=== PATIENT | male | born 2005 | race Two or more races ===

== ENCOUNTER 2024-01-04 11:19 | Emergency (ER) | payer SELFPAY ==
[2024-01-04] MEDS: Lidocaine 2% Viscous Solution 15 ML UD PO ONE (12:09)
[2024-01-04] MEDS: Benzocaine 20% Topical Spray UD MUCMEM ONE (12:09)
== END 2024-01-04 12:13 | disposition home or self-care (01) ==
LOC: MW.ED 11:19
DX: K05.10 Chronic gingivitis, plaque induced (principal); K04.7 Periapical abscess without sinus; Z79.2 Long term (current) use of antibiotics; Z79.899 Other long term (current) drug therapy; Z75.8 Other problems related to medical facilities and other health care
CPT/HCPCS: 99282; A9270